=== PATIENT | female | born 1985 | race African-American/Black ===

== ENCOUNTER 2021-08-15 03:30 | Emergency (ER) | payer OTHER ==
[~2021-08-15] VITALS: Ht 157.5 cm; Wt 83.0 kg
[2021-08-15] MEDS ORDERED: LAMOTRIGINE100 M1 PO (03:48)
[2021-08-15] MEDS ORDERED: ALPRAZOLAM XR3 MG PO (03:48)
[2021-08-15] MEDS ORDERED: CLONAZEPAM 0.50.5 M1 PO (03:48)
[2021-08-15] MEDS ORDERED: OLANZAPINE10 M1 PO ×2 (03:49→04:06)
[2021-08-15] MEDS ORDERED: PROPRANOLOL 20M20 M1 (03:49)
[2021-08-15] MEDS ORDERED: ALPRAZOLAM ER1 MG PO (04:06)
[2021-08-15] MEDS ORDERED: LAMICTAL100 MG PO (04:06)
[2021-08-15] MEDS ORDERED: PROPRANOLOL 20M20 M1 PO (04:06)
[2021-08-15 04:21] VITALS: BP 138/87
== END 2021-08-15 04:22 | disposition home or self-care (01) ==
LOC: M.ERS 03:30
DX: F41.9 Anxiety disorder, unspecified (principal); Z76.0 Encounter for issue of repeat prescription; F25.9 Schizoaffective disorder, unspecified; F31.9 Bipolar disorder, unspecified; Z98.51 Tubal ligation status; Z98.890 Other specified postprocedural states; Z79.899 Other long term (current) drug therapy